=== PATIENT | female | born 1985 | race Caucasian/White ===

== ENCOUNTER 2021-05-27 21:50 | Emergency (ER) | payer SELFPAY ==
[~2021-05-27] VITALS: Ht 172.7 cm; Wt 109.3 kg
[2021-05-27] MEDS ORDERED: NS 1,000 ML IV ONE (22:55)
[2021-05-28 00:24] LABS: BASO # 0.1 10^3/uL (0.0-0.2); BASO % 0.5 % (0.0-1.0); EOS # 0.1 10^3/uL (0.0-0.5); EOS % 0.7 % (0.0-3.0); HEMATOCRIT 43.3 % (36.0-47.0); HEMOGLOBIN 14.1 g/dl (12.0-15.5); LYMPH # 2.2 10^3/uL (1.5-5.0); LYMPH % 19.1 % (24.0-44.0); MEAN CORPUSCULAR HEMOGLOBIN 28.2 pg (27.0-33.0); MEAN CORPUSCULAR HGB CONC 32.6 g/dl (32.0-36.5); MEAN CORPUSCULAR VOLUME 86.6 fl (80.0-96.0); MONO # 0.7 10^3/uL (0.0-0.8); MONO % 6.1 % (2.0-8.0); NEUTROPHILS # 8.5 10^3/uL (1.5-8.5); NEUTROPHILS % 72.5 % (36.0-66.0); PLATELET COUNT, AUTOMATED 395 10^3/uL (150-450); WHITE BLOOD COUNT 11.7 10^3/uL (4.0-10.0)
--- NOTE | 2021-05-28 00:31 | REPVR ---
PROCEDURE INFORMATION: Exam: CT Head Without Contrast Exam date and time: 05/27/2021 10:54 PM Age: 35 years old Clinical indication: Dizziness; Additional info: Syncope TECHNIQUE: Imaging protocol: Computed tomography of the head without contrast. Radiation optimization: All CT scans at this facility use at least one of these dose optimization techniques: automated exposure control; mA and/or kV adjustment per patient size (includes targeted exams where dose is matched to clinical indication); or iterative reconstruction. COMPARISON: No relevant prior studies available. FINDINGS: Brain: Normal. No hemorrhage. Unremarkable white matter. No mass effect. Cerebral ventricles: No ventriculomegaly. Paranasal sinuses: Visualized sinuses are unremarkable. No fluid levels. Mastoid air cells: Visualized mastoid air cells are well aerated. Bones/joints: Unremarkable. No acute fracture. Soft tissues: Unremarkable. IMPRESSION: No acute intracranial abnormality. Electronically signed by: Sriram Bentley On 05/28/2021 00:30:29 AM
[2021-05-28 00:37] LABS: ALBUMIN 3.9 GM/DL (3.2-5.2); ALT/SGPT 62 U/L (12-78); BILIRUBIN,TOTAL 0.4 MG/DL (0.2-1.0); BLOOD UREA NITROGEN 17 MG/DL (7-18); CALCIUM LEVEL 9.7 MG/DL (8.5-10.1); CARBON DIOXIDE LEVEL 26 MEQ/L (21-32); CHLORIDE LEVEL 104 MEQ/L (98-107); CREATININE FOR GFR 0.96 MG/DL (0.55-1.30); GLOMERULAR FILTRATION RATE > 60.0 (>60); GLUCOSE, FASTING 107 MG/DL (70-100); SODIUM LEVEL 138 MEQ/L (136-145); TOTAL PROTEIN 7.8 GM/DL (6.4-8.2)
[2021-05-28 00:51] LABS: RSV AMPLIFICATION NEGATIVE (NEGATIVE)
[2021-05-28 02:11] VITALS: BP 134/86
--- NOTE | 2021-05-28 19:25 | ECGEPIP ---
[facility] - ED Test Date: 2021-05-27 Pat Name: DRAKE CHOUDHURY Department: Room: - Gender: Female Inclusion Internship: Radha MENG : 1985 Requested By: FELICIA COREY Order Number: [id number] Reading MD: Malinda Kelley Measurements Intervals Rowe Rate: 82 P: 33 OK: 172 QRS: 12 QRSD: 72 T: 3 QT: 374 QTc: 436 Interpretive Statements Normal sinus rhythm Nonspecific T wave abnormality No prior Electronically Signed on 05-28-2021 19:25:21 EST by Malinda Kelley
== END 2021-05-28 02:27 | disposition home or self-care (01) ==
LOC: M ED 21:50
DX: R55 Syncope and collapse (principal); I10 Essential (primary) hypertension; Z82.49 Family history of ischemic heart disease and other diseases of the circulatory system